=== PATIENT | female | born 1970 | race Caucasian/White ===

== ENCOUNTER 2019-03-08 17:02 | Emergency (ER) | payer OTHER, SELFPAY ==
[2019-03-08 17:03] VITALS: BP 204/107; PULSE 100; RESP 15; TEMP 36.8; O2SAT 96; BMI 24.2
--- NOTE | 2019-03-08 17:38 | ED.DCSUM_ITS ---
- ER Visit Summary Date of Service: 03/08/19 Chief Complaint: Dental pain History of Present Illness: The patient is a 48 F presenting with dental pain and facial swelling. Patient was seen by her dentist yesterday. She was started on clindamycin. She states the antibiotics are making her nauseated. She has had vomiting after taking the antibiotics today. She has had subjective fever. No difficulty breathing or swallowing. No other complaints. She has an allergy to penicillin. Physical Examination: Vitals are stable. Patient is afebrile. Alert no acute distress. HEENT exam right mandibular swelling, right lower molar tenderness, no surrounding fluctuance. No sublingual edema. Neck is supple. Lungs are clear and equal bilaterally. Heart is regular rate and rhythm. Abdomen is soft nontender nondistended. Extremities are unremarkable. Skin is warm and dry. Remainder of exam is unremarkable. Emergency Department Course and Treatment: Patient was given IV clindamycin, morphine, Zofran. On reevaluation, she is feeling improved. She is given a prescription for Zofran to take before her antibiotics. She is advised to follow-up with her dentist as scheduled. Advised to return to ED if worsening complaints. Disposition: Discharge home Impression: Odontalgia, dental infection This note was generated with [employer] dictation software. It may contain incorrect words, spelling, and punctuation that were not noted in review of the chart prior to signing ED Disposition - Plan for ED Patient: Instructions: ED Tooth Pain Prescriptions: Ondansetron [Zofran Odt] 4 mg PO Q8H PRN PRN #10 tablet PRN Reason: Nausea Referrals: Luli Eid MD [Primary Care Provider] -
[2019-03-08] MEDS: 0.9% Normal Saline 1,000 ML 999 ML IV (18:07)
[2019-03-08] MEDS: Ondansetron 4 MG/2 ML Vial IV (18:08)
[2019-03-08] MEDS: Morphine 4 MG/ML Syringe IV (18:08)
--- NOTE | 2019-03-08 18:52 | ED.DEP ---
ED Disposition - Plan for ED Patient: Instructions: ED Tooth Pain Prescriptions: Ondansetron [Zofran Odt] 4 mg PO Q8H PRN PRN #10 tablet PRN Reason: Nausea Referrals: Luli Eid MD [Primary Care Provider] -
--- NOTE | 2019-03-08 18:54 | ED.DEP ---
ED Disposition - Plan for ED Patient: Instructions: ED Tooth Pain Prescriptions: Oxycodone HCl/Acetaminophen [Percocet 5/325] 1 tablet PO Q6H PRN PRN 3 Days #12 tablet PRN Reason: Pain Ondansetron [Zofran Odt] 4 mg PO Q8H PRN PRN #10 tablet PRN Reason: Nausea Referrals: Luli Eid MD [Primary Care Provider] -
[2019-03-08 19:07] VITALS: BP 173/101; PULSE 89; RESP 16; O2SAT 97
== END 2019-03-08 19:08 | disposition home or self-care (01) ==
PROVIDERS: Emergency Provider Emergency Medicine; Family Provider Internal Medicine; PCP Internal Medicine
DX: K04.7 Periapical abscess without sinus (principal); K08.89 Other specified disorders of teeth and supporting structures; R11.2 Nausea with vomiting, unspecified
CPT/HCPCS: 96365; 96375; 99283; J7030; J2405

== ENCOUNTER → 2019-04-27 | Outpatient (CLI) | payer OTHER, SELFPAY ==
[2019-04-27 15:44] LABS: Absolute Lymphocyte Count 1.31 X10^3/uL (0.83-4.51); Absolute Neutrophil Count 3.1 X10^3/uL (2.0-7.7); Basophil# 0.04 X10^3/uL; Basophil% 0.7 % (0-1); Eosinophils% 7.4 % (0-5); Hematocrit 39.6 % (37-47); Lymphocyte # 1.31 X10^3/ul (4.0); Lymphocyte % 24.3 % (19-41); Mean Corp Hgb Conc 32.8 g/dL (32-36); Mean Corpuscular Hgb 30.4 pg (27.0-32.0); Mean Corpuscular Volume 92.5 fL (81-99); Mean Platelet Vol. 10.4 fl (6.2-12.0); Monocyte% 9.3 % (0-10); NRBC Flagged by Analyzer 0 % (0-5); Neutrophil # 3.13 X10^3/uL (2.7-7.7); Neutrophil % 58.1 % (47-70); Platelet Count 210 K/mm3 (150-450); RBC Distribution Width CV 13.4 % (11.6-14.6); RBC Distribution Width SD 45.5 fl (35.1-43.9); Red Blood Count 4.28 M/mm3 (4.2-5.4); White Blood Count 5.4 K/mm3 (4.4-11.0)
[2019-04-27 15:53] LABS: Color, Urine Yellow (Yellow); Glucose, Dipstick Normal (Normal); Ketone-Dipstick Negative (Negative); Leukocyte Esterase-Dipstick 100 /ul (Negative); Nitrite-Dipstick Positive (Negative); Occult Blood-Urine 25 /ul (Negative); Protein-Dipstick 15 mg/dl (Negative); Specific Gravity, Urine 1.025 (1.002-1.030); Urine Bilirubin Dipstick Negative (Negative); Urine Clarity Sl. Cloudy (Clear); Urine Urobilinogen Normal (Normal)
[2019-04-27 16:05] LABS: ALB/GLOB Ratio 1.1 RATIO (0.9-2.4); AST(SGOT) 18 U/L (15-37); Alanine Aminotransfer ALT/SGPT 26 U/L (13-56); Albumin, Serum 4.1 g/dL (3.2-5.0); Alkaline Phosphatase 102 U/L (45-117); Anion Gap 8 (5-15); BUN 11 mg/dL (7-18); BUN/Creat Ratio 15.6 RATIO (10-20); Chloride 107 mmol/L (98-107); EST Glomerular Filtration Rate 94 mL/min (>60); Est Glom Filt Rate - Afr Amer 113 mL/min (>60); Globulin 3.6 g/dL (2.2-4.2); Glucose 83 mg/dL (74-106); Potassium 3.5 mmol/L (3.5-5.1); Protein, Total 7.7 g/dL (6.4-8.2); Sodium Level 142 mmol/L (136-145)
[2019-04-27 16:11] LABS: Squamous Epithelial Cells - UA 10-25 SEEN /hpf (5-10); White Blood Cells 25-50 SEEN /hpf (0-5)
[2019-04-27 16:12] LABS: Bacteria 4+ /hpf (None Seen); Mucous, Urine 2+ /hpf (<or=2+); Red Blood Cells-Urine 0-5 SEEN /hpf (0-5)
== END | disposition home or self-care (01) ==
LOC: BFHLAB 14:08
PROVIDERS: Family Provider Family Medicine; PCP Family Medicine; Visit Provider Family Medicine
DX: I10 Essential (primary) hypertension (principal)
CPT/HCPCS: 36415; 80053; 81001; 84443; 85025; 87077; 87086; 87088; 87186

== ENCOUNTER → 2022-04-12 | Outpatient (CLI) | payer OTHER, SELFPAY ==
[2022-04-12 10:33] LABS: Absolute Lymphocyte Count 1.55 X10^3/uL (0.83-4.51); Absolute Neutrophil Count 4.7 X10^3/uL (2.0-7.7); Basophil# 0.03 X10^3/uL; Basophil% 0.4 % (0-1); Eosinophil# 0.61 X10^3/uL; Hematocrit 42.1 % (37-47); Hemoglobin 13.9 g/dL (12.0-15.0); Lymphocyte # 1.55 X10^3/ul (0.83-4.51); Lymphocyte % 20.3 % (19-41); Mean Corpuscular Hgb 30.6 pg (27.0-32.0); Mean Corpuscular Volume 92.7 fL (81-99); Mean Platelet Vol. 9.8 fl (6.2-12.0); Monocyte# 0.71 X10^3/uL; Monocyte% 9.3 % (0-10); NRBC Flagged by Analyzer 0 % (0-5); Neutrophil # 4.71 X10^3/uL (2.7-7.7); Neutrophil % 61.5 % (47-70); Platelet Count 238 K/mm3 (150-450); RBC Distribution Width CV 13.1 % (11.6-14.6); RBC Distribution Width SD 44.4 fl (35.1-43.9); Red Blood Count 4.54 M/mm3 (4.2-5.4); White Blood Count 7.7 K/mm3 (4.4-11.0)
[2022-04-12 11:04] LABS: AST(SGOT) 25 U/L (15-37); Alanine Aminotransfer ALT/SGPT 43 U/L (13-56); Albumin, Serum 3.8 g/dL (3.2-5.0); Alkaline Phosphatase 94 U/L (45-117); Anion Gap 7 (5-15); BUN 14 mg/dL (7-18); BUN/Creat Ratio 18.8 RATIO (10-20); Calcium,Total 9.3 mg/dL (8.5-10.1); Chloride 107 mmol/L (98-107); Cholesterol 217 mg/dL (200); Creatinine, Serum 0.74 mg/dL (0.55-1.02); EST Glomerular Filtration Rate 87 mL/min (>60); Est Glom Filt Rate - Afr Amer 105 mL/min (>60); Globulin 3.8 g/dL (2.2-4.2); Glucose 99 mg/dL (74-106); High Density Lipoprotein 60 mg/dL; Potassium 3.3 mmol/L (3.5-5.1); Protein, Total 7.6 g/dL (6.4-8.2); Sodium Level 142 mmol/L (136-145); Triglycerides 65 mg/dL; Very Low Density Lipoprotein 13 mg/dL (5-40)
== END | disposition home or self-care (01) ==
LOC: LAB 09:30
PROVIDERS: PCP Family Medicine; Visit Provider Family Medicine
DX: Z00.00 Encounter for general adult medical examination without abnormal findings (principal); I10 Essential (primary) hypertension
CPT/HCPCS: 36415; 80053; 80061; 85025

== ENCOUNTER → 2023-03-07 | Outpatient (CLI) | payer OTHER, SELFPAY ==
--- NOTE | 2023-03-07 10:15 | TISS_PTH ---
PAT[facility]: KING KHAN [id number] AGE/SX: 52/F ROOM: RE03/07/[address]: PRINCESS Salas : 1970 BED: DIS: 03/07/2023 SPEC #: [id number] RECD: 03/07/23 18:06 STATUS: ARDEN YEE #: [id number] JOHN: 03/07/23 10:[address]: Cecy Edwards DEPT: SURGICAL PATHOLOGY RECD BY: Ortiz Bustillo Tissues: Skin of leg, NOS Procedures: Special Stain Group I Surgery Specimen Level IV GMS Stain (control) HEADER OPERATION: Punch biopsy PRE-OP DIAGNOSIS: Eczema vs psoriasis TISSUE SUBMITTED: Left calf MICROSCOPIC DIAGNOSIS Left calf lesion, punch biopsy: Psoriasiform epidermal hyperplasia, hyperkeratosis and parakeratosis. Dermal, epidermal and junctional chronic inflammation. See comment. JOLENE:beti 03/09/2023 COMMENT The inflammatory cell infiltrate consists of predominantly lymphocytes and a few eosinophils. Special stain for fungi is negative for organisms; matched control is appropriate. Correlation with clinical findings and appropriate follow up are necessary. This case was discussed with Ms. Cecy Edwards on 03/09/2023. MICROSCOPIC DESCRIPTION Slides are reviewed. GROSS DESCRIPTION Received in fixative is one container labeled with the patient's name and designated left calf. The specimen consists of a punch biopsy of argueta-white skin measuring 0.4 cm in diameter and 0.4 cm in length. The specimen is totally submitted in one cassette. / SJ:beti 03/08/2023 TC:3 CPT: 34452, 02157
== END | disposition home or self-care (01) ==
LOC: LAB.FUTURE 13:58
PROVIDERS: PCP Nurse Practitioner Family; Referring Provider Nurse Practitioner Family; Visit Provider Nurse Practitioner Family
DX: R22.42 Localized swelling, mass and lump, left lower limb (principal)
CPT/HCPCS: 88305; 88312

== ENCOUNTER → 2023-03-07 | Outpatient (CLI) | payer OTHER, SELFPAY ==
--- NOTE | 2023-03-07 13:44 | VDLE_ITS ---
Reason For Study: RLE pain & swelling RIGHT LEFT GSV is normal. CFV is compressible, spontaneous, phasic, CFV is compressible, spontaneous, phasic, competent, and demonstrates normal competent and demonstrates normal augmentation. augmentation. FV is compressible, spontaneous, phasic, competent and demonstrates normal augmentation. POP V is compressible, spontaneous, phasic, competent and demonstrates normal augmentation. T/P Trunk is compressible. PTV is compressible. RT PerV is compressible. Procedure This is a venous duplex using B-mode, color flow and spectral Doppler. Exam performed in department. The exam was diagnostic. A preliminary report was called and/or faxed to Cecy Edwards @ [phone] @ 2 pm. VL/Venous Duplex US, Unilateral Interpretation Summary Deep veins of the right lower extremity are patent and compressible segmentally . There is no evidence of right lower extremity deep vein thrombosis. The right great sapheno us vein appears patent and compressible segmentally. Ordering Physician: Cecy Edwards Referring Physician: Gloria Mackenzie Performed By: Shakira Sawyer, NELLIE, RVT
== END | disposition home or self-care (01) ==
LOC: CVS 13:39
PROVIDERS: PCP Family Medicine; Referring Provider Nurse Practitioner Family; Visit Provider Nurse Practitioner Family
DX: M79.604 Pain in right leg (principal)
CPT/HCPCS: 93971

== ENCOUNTER → 2023-04-21 | Outpatient (CLI) | payer OTHER, SELFPAY ==
[2023-04-21 10:49] LABS: Hepatitis B Surface Antibody Non-Reactive
[2023-04-22 05:07] LABS: HEPATITIS B SURFACE AG Negative (Negative); Hep C Antibodies Non Reactive (Non Reactive); Hepatitis A AB, Total Negative (Negative); Hepatitis A IgM Antibody Negative (Negative); Hepatitis B Core AB IgM Negative (Negative)
== END | disposition home or self-care (01) ==
LOC: MTLAB 08:17
PROVIDERS: PCP Family Medicine; Visit Provider Physician Assistant
DX: L43.8 Other lichen planus (principal); S40.261A Insect bite (nonvenomous) of right shoulder, initial encounter; S30.860A Insect bite (nonvenomous) of lower back and pelvis, initial encounter
CPT/HCPCS: 36415; 80074; 86706; 86708

== ENCOUNTER 2025-09-01 08:30 | Emergency (ER) | payer OTHER, SELFPAY ==
[2025-09-01 08:31] VITALS: BP 172/102; PULSE 75; RESP 16; TEMP 36.7; O2SAT 98; BMI 24.3
--- NOTE | 2025-09-01 08:38 | ED.VIS.BACK ---
HPI History of Present Illness Chief Complaint: Back Informant: patient Onset/Context/Timing Onset: Days (4) Context: Gradual Onset Timing: Continuous Quality: Dull Location: Lumbar, Buttock and Right Leg Worsened by: improves with Nothing Relieved by: Nothing Associated Symptoms Associated Symptoms: Radiation to Right Leg; Negative for Numbness, Tingling, Radiation to Left Leg, Fever, Abdominal Pain, Dysuria, Unable to Ambulate, Unable to Transfer, Urinary Retention, Urinary Incontinence, Constipation or Fecal Incontinence Narrative Narrative: Patient presents with back pain that has been getting worse over the past 4 days. Patient states it came on gradually. Patient states it is constant. Patient describes it as dull. Patient states it is over the right lumbar paraspinal muscles and radiates into the right buttock and down the right leg to her calf. Patient states nothing makes it better and nothing makes it worse. Patient denies any radiation into her abdomen. Patient denies any bowel or bladder changes. Patient denies any saddle anesthesia. Patient states she noticed the rash a couple days ago over her right buttock. PFSH [facility] Medical History (Updated 09/01/25 @ 08:[address] Foster Garcia DO) Tick bite Hypertension Medical History unable to obtain Home Medications ?Medication ?Instructions ?Recorded ?Last Taken ?Type amlodipine 5 mg tablet 5 mg PO DAILY 11/07/22 Unknown History doxycycline monohydrate 100 mg 100 mg PO BID #28 caps 12/24/24 Unknown Rx capsule cyclobenzaprine 10 mg tablet 10 mg PO QHS PRN PRN Muscle Spasm 09/01/25 Unknown Rx #10 TABLETS hydrocodone-acetaminophen 5-325mg 1 tab PO Q6H PRN PRN Pain 3 days 09/01/25 Unknown Rx 5mg-325mg #10 TABLETS Allergy/AdvReac Type Severity Reaction Status Date / Time Penicillins Allergy Unknown Verified 09/01/25 08:32 Family History unable to obtain Surgical History (Updated 09/01/25 @ 08:[address] Foster Garcia DO) Hx of lumbar discectomy Surgical History unable to obtain Social History Smoking Status: Never smoker ROS ROS ED Constitutional Constitutional ED: Denies chills or fever(s) Eyes Eyes: Denies blurry vision or change in vision ENT ENT ED: Denies rhinorrhea or sore throat Cardiovascular Cardiovascular: Denies chest pain or palpitations Respiratory/Chest Respiratory/Chest: Denies cough or dyspnea Gastrointestinal Gastrointestinal: Denies nausea or vomiting Genitourinary Genitourinary ED: Denies dysuria or hematuria Musculoskeletal Musculoskeletal: Reports back pain; Denies neck pain Integumentary Reports rash; Denies abscess Neurologic Neurologic: Denies headache(s) or weakness Allergic/Immunologic Allergic/Immunologic ED: Denies mouth swelling or urticaria EXAM Physical Exam Const Vital Signs: 09/01/25 08:31 Temperature 98.1 F Temperature Source Oral Pulse Rate 75 Respiratory Rate 16 Blood Pressure 172/102 H Blood Pressure Mean 125 Pulse Ox 98 Oxygen Delivery Method Room Air Positive well nourished and well developed General Appearance ED: well developed and NAD HEENT Reports moist mucous membranes Neck supple and no JVD Back/Spine Back/Spine Narrative: There is mild tenderness over the right lumbar paraspinal muscles and right gluteal area. There is no bony crepitance or step-off. There is no midline tenderness. There is somewhat limited range of motion of the lumbar spine. Strength is 5/5 bilaterally in the lower extremities. There are no sensory deficits noted. Straight leg raises were negative. Lumbar Spine / Lower Back: ROM limited and straight leg raise negative bilaterally Neuro oriented x3 and no sensory deficits noted Sensorium / Orientation: alert Motor Exam: strength 5/5 throughout Deep Tendon Reflexes: Rt Patellar (L4): 2+, Lt Patellar (L4): 2+, Rt Ankle (S1): 2+ and Lt Ankle (S1): 2+ Deep Tendon Reflexes Back: Rt Patellar (L4): 2+, Lt Patellar (L4): 2+, Rt Ankle (S1): 2+ and Lt Ankle (S1): 2+ Skin Skin Narrative: There is mild erythematous rash over the right gluteal area. There are no vesicles or pustules. There are no petechia noted. There is no involvement of the palms soles. There is no involvement of mucous membranes. MDM MDM MDM Narrative Medical decision making narrative: Differential diagnosis includes lumbosacral strain, sciatica, and varicella-zoster. Since the rash is localized to the gluteal area and there is no dermatomal distribution and no vesicles, I do not feel this is from varicella zoster. It is likely that the rash is from the analgesic cream that she applied to the area. Patient was given a prescription for a short course of [place] and a short course of Flexeril to take at bedtime. Patient was advised that this is most likely sciatica. I do not feel x-rays are necessary at this time. Patient is agreeable with this. Patient was instructed to follow-up with her primary care physician in 5 to 7 days. Patient was instructed to return if worse in any way. Patient understood and was agreeable with the plan. All questions were answered. History & Record Review Additional record(s) reviewed:: Prior outpatient record Discharge Plan Triage Chief Complaint: Back Other Complaint: Lower Extremity Injury ED Provider: Foster Garcia Dx/Rx/DC Orders Clinical Impression: Sciatica of right side, Elevated blood pressure reading Instructions: ED Sciatica Prescriptions: New cyclobenzaprine 10 mg tablet 10 mg PO QHS PRN PRN (Reason: Muscle Spasm) Qty: 10 0RF hydrocodone-acetaminophen 5-325 mg tablet 1 tab PO Q6H PRN PRN (Reason: Pain) 3 Days Qty: 10 0RF No Action amlodipine 5 mg tablet 5 mg PO DAILY Patient Comments: TAKE 1 TABLET BY MOUTH EVERY DAY doxycycline monohydrate 100 mg capsule 100 mg PO BID Qty: 28 0RF Primary Care Provider: Gloria Mackenzie Referrals: Gloria Mackenzie MD [Primary Care Provider, Family Practice] - 5-7 Days Print Language: Yoruba Disposition Disposition: Home, Self Care
--- OUTSIDE RECORDS SUMMARY | 2025-09-01 09:04 | XMS RPT_ITS | CCD ---
Author Organization [facility] Inform ion Partnership [facility] Care Team Providers Care Weir Fisher Name Role Phone JOMAR CHAVEZ Unavailable Unavailable NITISH CHAMORRO (KUN) Unavailable Unavailable Craig Packer Attending Unavailable Gloria Mackenzie Referring Unavailable Gloria Mackenzie Primary Care Unavailable Allergies Allergy Classification Reported Allergen(s) Allergy Type Date of Onset Reaction(s) Facility (5 sources) Penicillins; Translations: [PENICILLINS] Propensity to adverse reactions to drug (disorder) 4 AOF, Unknown [facility] Repository Medications Current Medications Medication Drug Class(es) Dates Sig (Normalized) Sig (Original) amLODIPine 5 mg oral tablet (3 sources) Dihydropyridine Calcium Channel Gabriel Start: 11-07-2022 take 5 mg by mouth once daily Amlodipine Active 5 MG PO DAILY November 07, 2022 1:00am azithromycin 250 mg oral tablet (3 sources) Macrolide Antimicrobial Start: 11-07-2022 Azithromycin (Zithromax Z-Herson) 250 mg tablet Active 0 PO .COMPLEX 6 November 07, 2022 1:00am For 250 mg dose pack: take 500 mg today (day 1), then 250 mg for 4 days (days 2-5) PO Completed/Discontinued Medications Medication Drug Class(es) Dates Sig (Normalized) Sig (Original) acetaminophen 325 mg / oxyCODONE hydrochloride 5 mg oral tablet (4 sources) Opioid Agonist Start: 03-08-2019 End: 03-11-2019 take 1 tablet by mouth every six hours as needed Oxycodone-Acetami nophen Discontinued 1 TABLET PO EVERY 6 HOURS NEEDED 08 28March 08, 2019 12:00am March 11, 2019 12:08am clindamycin 150 mg oral capsule (4 sources) Lincosamide Antibacterial Start: 03-08-2019 End: 11-07-2022 take 150 mg by mouth every six hours Clindamycin Hcl Discontinued 150 MG PO EVERY 6 HOURS FOR 7 DAYS March 08, 2019 12:00am November 07, 2022 10:53am ondansetron 4 mg disintegrating oral tablet (4 sources) Serotonin-3 Receptor Antagonist Start: 03-08-2019 End: 11-07-2022 take 4 mg by mouth every eight hours as needed Ondansetron Discontinued 4 MG PO EVERY 8 HOURS NEEDED March 08, 2019 12:00am November 07, 2022 10:53am Problems Problem Classification Problem Date Documented Da te Episodic/Chronic Other upper respiratory infections (6 sources) Streptococcal sore throat; Translations: [Streptococcal pharyngitis] 11-07-2022 Episodic Results Test Name Value Interpretation Reference Range Facility Urgent Care Visit Reporton 0 12-24-2024 Urgent Care Visit Report [facility] [address], [address] [place] [address] OFFICE VISIT Date of Service: 12/24/24 MR#: [id number] Acct: [id number] Name: MAGGIE SALAZAR Rep #: [id number] : 1970 Provider: KUN Altamirano Age/Sex: 54/F Location: [facility] Status: Signed Intake Vital Signs 11/07/22 09:52 12/24/24 10:51 Height 5 ft 6 in 5 ft 6 in Weight: 153 lb 4 oz BMI 24.7 BP 124/86 H Position Sitting Pulse 78 Temp 98.6 F Pulse Oximetry (%) 97 Oxygen Delivery Method room air Intake Visit Reasons: L UPPER ARM TICK BITE Accompanied by: Self Allergies Penicillins Allergy (Verified 12/24/24 10:57) Unknown Medications ???Medication ???Instructions ???Recorded ???Confirmed ???Type amlodipine 5 mg tablet 5 mg PO DAILY 11/07/22 12/24/24 Hi story doxycycline monohydrate 100 mg 100 mg PO BID #28 caps 12/24/24 Rx capsule Nurse's Note: Patient has a tick bit on her left upper arm. Patient noticed the tick yesterday. Patient think it got on her either Tuesday or Sat. Patient did get the tick of in pieces so she isn't sure if the head is out. Patient does have a red ring around the bite. [facility] Medical History (Updated 12/24/24 @ 11:52 by Craig TRISTAN, PA) Tick bite Hypertension Social History Smoking Status: Never smoker HPI HPI Details: MAGGIE SALAZAR, is a 54 F who presents to the office today for tick bite to the left upper arm most likely 2 to 3 days ago as stated in nursing history above. She notes her was able to move the tick with tweezers yesterday at home that was unsure if any foreign body retention (head) is still retained within the wound. No complaints of fever, chills, headache, muscle aches, joint pain, neck pain, skin rash, Carlos's palsy, heart rhythm disturbances appreciated upon questioning. No [id number] products taken to assist. No other associated symptoms and no other alleviating/aggravating factors. ROS Const Constitutional: No other (As above) Exam Const General: cooperative, healthy appearing and no acute distress Orientation: alert and awake Chest Chest palpation inspection: normal inspection of the chest Resp Effort Inspection: normal respiratory effort and able to speak in complete sentences Cardio Rate: regular rate Pulses: radial pulses present Skin General: no rashes or lesions noted Other: Left upper posterior arm pinpoint eschar (though no foreign body retention appreciated upon inspection) with approximately 1 cm diameter erythema (not a classic erythema migrans appearance) with a mechanical integrity specialist erythematous circumferential of approximately 5 cm as well. Neuro General: patient alert and patient awake Cognition: normal cognition Speech: speech normal Extrem General: normal to inspection Psych Appearance: grossly normal Mental Status: mental status grossly normal Mood: congruent mood Affect: normal affect Speech and Movement: speech and movement normal Attitude: cooperative Coding Level of Care Code Off vis,est,level 3 Diagnoses Tick bite W57.XXXA Assessment and Plan Assessment and Plan (1) Tick bite: Status: Acute Plan: - by history Doxycycline 100 mg twice daily x 14 days as prescribed today. Supportive measures as instructed. A picture of the wound site as appears today was taken with patient's personal cell phone which she is to sure PCP and follow-up in 5 to 7 days or report to ED sooner should symptoms only worsen or any other concerns develop. Patient states acknowledging understanding all the above. This note was generated with Almondyation software. It may contain incorrect words, spelling, and punctuation that were not noted in checking the note before signing. Medications: New doxycycline monohydrate 100 mg PO BID 28 caps 0RF 12/24/24 1154 Date ____ Craig Tapia Signature: Date ____ (if applicable) CC: Normal [facility] No Panel InformationOrdered By: Alanis Bynum on 04-21-2023 Hepatitis A Antibody Total Negative Negative [facility] Comment on above: Performed at: [address] Director: Bobby Knott PhD, Phone: [phone] Hepatitis A IgM Antibody Negative Negative [facility] Hepatitis B Core IgM Antibody Negative Negative [facility] Hepatitis C Antibody (EIA) Non-Reactive Non Reactive [facility] Hepatitis C Antibody Comment Comment . [facility] Comment on above: Not infected with HC V unless early or acute infection issuspected (which may be delayed in an immunocompromisedindividual), or other evidence exists to indicate HCVinfection. Serum hepatitis B virus surf delaney antibody IgG detectionOrdered By: Alanis Bynum on 04-21-2023 HBV surface IgG Ql (S) Non-Reactive [facility] Comment on above: Non Reactive: Incons istent with immunity less than <10 mIU/mL Reactive: Consistent with immunity greater than or equal to 10 mIU/mL Serum or plasma hepatitis B virus surface antigen detection by immunoassayOrdered By: Alanis Bynum on 04-21-2023 HBV surface Ag IA Ql Negative Negative [facility] Absolute lymphocyte counton 04-12-2022 Lymphocytes Auto (Unsp spec) [#/Vol] 1.55 10*3/uL 0.83-4.[address] [facility] Work Phone: Basophil percentageon 2021 Basophils/100 WBC (Bld) 0.4 % 0-[address] [facility] Work Phone: [phone] Bilirubin [Mass/Vol] 0.70 mg/dL 0.20-1.[address] [facility] Work Phone: [phone] Comment on above: For patients on eltr ombopag therapy, use of Dimension [place] TBIL is not recommended. Chloride [Moles/Vol] 107 mmol/L 98-[address] [facility] Work Phone: Cholesterol [Mass/Vol] 217 mg/dL <[address] [facility] Work Phone: [phone] Comment on above: <200 mg/dL Desirable 200-240 mg/dL Borderline >240 mg/dL High Risk Eosinophils/100 WBC (Bld) 8.0 % 0-[address] [facility] Work Phone: Glucose [Mass/Vol] 99 mg/dL 74-106 [facility] Work Phone: [phone] Neutrophils (Bld) [#/Vol] 4.7 10*3/uL 2.0-7.[address] [facility] Work Phone: Neutrophils/100 WBC (Bld) 61.5 % 47-[address] [facility] Work Phone: [phone] Potassium [Moles/Vol] 3.3 mmol/L 3.5-5.[address] [facility] Work Phone: [phone] Protein [Mass/Vol] 7.6 g/dL 6.4-8.2 [facility] Work Phone: Sodium [Moles/Vol] 142 mmol/L 136-145 [facility] Work Phone: [phone] Triglyceride [Mass/Vol] 65 mg/dL <[address] [facility] Work Phone: [phone] Comment on above: The drugs N-Acetylcy steine and Metamizole may falsely depress this assay.Serum Triglycerides Reference Interval Normal <150 mg/dL Borderline high 150 - 199 mg/dL High 200 - 499 mg/dL Very High > or = 500 mg/dL WBC (Bld) [#/Vol] 7.7 10*3/uL 4.4-11.0 [facility] Work Phone: [phone] Blood erythrocytes count (nu mber/volume)on 04-12-2022 RBC (Bld) [#/Vol] 4.54 10*6/uL 4.2-5.4 [facility] Work Phone: [phone] Blood hemoglobin measurement (mass/volume)on 04-12-2022 Hemoglobin (Bld) [Mass/Vol] 13.9 g/dL 12.0-15.[address] [facility] Work Phone: Blood lymphocytes/100 leukoc yteson 04-12-2022 Lymphocytes/100 WBC (Bld) 20.3 % 19-[address] [facility] Work Phone: Blood monocytes/100 leukocyt eson 04-12-2022 Monocytes/100 WBC (Bld) 9.3 % 0-[address] [facility] Work Phone: Blood platelet mean volumeon 04-12-2022 Platelet mean volume (Bld) [Entitic vol] 9.8 fL 6.2-12.[address] [facility] Work Phone: [phone] Determination of erythrocyte mean corpuscular volume (MCV)on 04-12-2022 MCV (RBC) [Entitic vol] 92.7 fL 81-[address] [facility] Work Phone: Hematocrit Auto (Bld) [Volum e fraction]on 04-12-2022 Hematocrit (Bld) [Volume fraction] 42.1 % 37-[address] [facility] Work Phone: [phone] Laboratory - Chemistry and C hemistry - challengeon 04-12-2022 ALP [Catalytic activity/Vol] 94 U/L 45-[address] [facility] Work Phone: ALT [Catalytic activity/Vol] 43 U/L 13-[address] [facility] Work Phone: CO2 [Moles/Vol] 28.0 mmol/L 21.0-32.[address] [facility] Work Phone: [phone] Globulin (S) [Mass/Vol] 3.8 g/dL 2.2-4.[address] [facility] Work Phone: Urea nitrogen/Creatinine [Mass ratio] 18.8 mg/mg 10-[address] [facility] Work Phone: Laboratory - Hematology and Cell countson 04-12-2022 Erythrocyte distribution width (RBC) [Entitic vol] 44.4 fL 35.1-43.[address] [facility] Work Phone: Erythrocyte distribution width (RBC) [Ratio] 13.1 % 11.6-14.[address] [facility] Work Phone: Immature granulocytes/100 WBC (Bld) 0.500 % 0.0-0.[address] [facility] Work Phone: Comment on above: IG% - Immature Granu locytes (promyelocytes, myelocytes and metamyelocytes) > 1% indicates that a LEFT SHIFT is Present. MCH (RBC) [Entitic mass] 30.6 pg 27.0-32.[address] [facility] Work Phone: Nucleated RBC/100 WBC (Bld) [Ratio] 0 % 0-[address] [facility] Work Phone: MCHC Auto (RBC) [Mass/Vol]on 04-12-2022 MCHC (RBC) [Mass/Vol] 33.0 g/dL 32-[address] [facility] Work Phone: No Panel Informationon 04-12 Estimated GFR (MDRD) Amer 105 mL/min >[address] [facility] Work Phone: Comment on above: GFR Calc Estimated GFR (MDRD) Non-Af Amer 87 mL/min >[address] [facility] Work Phone: Comment on above: Non- GFR Calc Platelets bldon 04-12-2022 Platelets (Bld) [#/Vol] 238 10*3/uL 150-[address] [facility] Work Phone: Serum or plasma albumin juan urement (mass/volume)on 04-12-2022 Albumin [Mass/Vol] 3.8 g/dL 3.2-5.0 [facility] Work Phone: Serum or plasma albumin/glob ulin mass ratioon 04-12-2022 Albumin/Globulin [Mass ratio] 1.0 {ratio} 0.9-2.[address] [facility] Work Phone: Serum or plasma calcium juan urement (mass/volume)on 04-12-2022 Calcium [Mass/Vol] 9.3 mg/dL 8.5-10.1 [facility] Work Phone: Serum or plasma cholesterol in HDL measurement (mass/volume)on 04-12-2022 Cholesterol in HDL [Mass/Vol] 60 mg/dL >[address] [facility] Work Phone: Comment on above: The drugs N-Acetylcy steine and Metamizole may falsely depress this assay. Reference Range HDL <40 mg/dL Low HDL Cholesterol HDL >or= 60 mg/dL High HDL Cholesterol Serum or plasma cholesterol in VLDL measurement (mass/volume)on 04-12-2022 Cholesterol in VLDL [Mass/Vol] 13 mg/dL 5-[address] [facility] Work Phone: Serum or plasma creatinine m easurement (mass/volume)on 04-12-2022 Creatinine [Mass/Vol] 0.74 mg/dL 0.55-1.[address] [facility] Work Phone: Comment on above: The validity of the calculated GFR & GFRAA in patients over 70 years has not been determined. Clinical correlation is essential. Serum or plasma low density lipoprotein (LDL) cholesterol measurement (mass/volume)on 04-12-2022 Cholesterol in LDL [Mass/Vol] 144 mg/dL 0-[address] [facility] Work Phone: Serum or plasma urea nitroge n measurement (mass/volume)on 04-12-2022 Urea nitrogen [Mass/Vol] 14 mg/dL [address] [facility] Work Phone: Thin prep Papanicolaou smear with manual screeningon 04-12-2022 Thin prep Papanicolaou smear with manual screening 25 U/L 15-[address] [facility] Work Phone: Thin prep Papanicolaou smear with manual screening 7 02-[address] [facility] Work Phone: CNOVon 03-14-2018 CNOV Office Visit (ALLMED) MAGGIE RAM ([id number]) 1970 FDate Time Provider Department03/14/18 9:30 AM JOMAR CHAVEZ ALLBERTO During your visit today, we recorded the following information about you: Pulse Respiration Blood pressure Weight 64/minute 12/minute 170/88 67.6 kg Height 1.689 Alycia Parisi RN 03/14/2018 9:36 AM SignedPatient c/o itchy/watery eyes, runny nose, sneezing 2 weeks prior and 2 weeksafter every year. Sometimes has scratchy throat. Levocetirizine,zyrtec-makes her tired, cinda, claritin, flonase- did not seem to help. Hasused otc eye drops for allergies that helped.Louisa Newman RN 03/14/2018 10:59 AM SignedThis is a consultation requested by Edwin Chamorro CNP for an allergy andimmunology evaluation. My final recommendations will be communicated back tothe requesting physician by way of shared medical record or letter torequesting physician via US mail.Maggie Salazar is a 47 year old female who has symptoms of itchy eyes, wateryeyes, nasal congestion, sneezing, postnasal drip. Associated symptoms includecough . These symptoms are seasonal with symptoms occuring in January and Februaryonly. Symptoms are worse when outdoors. No other identified triggers for hersymptoms. The patient has been suffering from these symptoms 4 year(s). Thepatient has tried Loratadine, Fexofenadine, Zyrtec, Flonase, Xyzal With fairrelief of symptoms. She has been treated with Kenalog injections previouslywith relief.. Immunotherapy has never been tried.Patient has a history of penicillin allergy. She had a reaction to penicillinin childhood. She does not know details about the reaction. Denies subsequentuse of penicillin antibiotics.REVIEW OF SYSTEMS:SINUSITIS: The patient does not suffer from frequent sinopulmonary infections.ASTHMA: The patient has no history of asthma.ECZEMA: The patient has no history of eczema.URTICARIA:The patient does not have a history of urticaria and/or angioedema.GERD: The patient does not have a history of GERD.INSECT STING: The patient does not have a history of systemic reaction toinsect sting.FOOD ALLERGY:The patient denies history of food allergy.LATEX: The patient does not have a history of adverse reaction to latex.All other review of systems negative except for those listed above.PAST MEDICAL HISTORYDiagnosis Date- HypertensionMEDICATIONS:IBUPROF EN (ADVIL ORAL) Take by mouth.Levocetirizine 5 mg tablet Take 1 tablet by mouth daily at bedtime.fluticasone (FLONASE) 50 mcg/actuation nasal spray Use 2 Sprays in each nostrilonce daily. Rinse mouth after use.Olopatadine (PATADAY) 0.2 % drop Use 1 Drop in both eyes once daily.ALLERGIES: Allergies As of Date: 03/14/2018Allergen Noted ReactionPENICILLINS 12/08/2013 UnknownFully Assessed 03/14/2018Past surgical history:Back surgery for bulging disk approx 2016FAMILY HISTORY:Allergic rhinitis:no.Asthma: no.Eczema: no.Cystic fibrosis: no.Immunodeficiency: no.SOCIAL HISTORY:Marital status: MarriedChildren: 2Occupation: Teacher- special ed preschoolSmoking: life-long non-smokerENVIRONMENTAL HISTORY: Lives in a houseAge of home: over 100 yearsHeating: gasWoodburning fireplace in the home: noAir conditioning: Window air conditioningBasement: Dry basement-runs dehumidifierFlooring: [id number]-ee-efdf carpetingDust mite controls: Dust mite controls are already in place on mattress.Pets in the home: There are no pets in the homeOutdoor animals: There are no outdoor animalsTobacco smoke: No exposure in the home.Physical Exam:GENERAL APPEARANCE:Well appearing, alert, in no acute distress, well-hydrated,well nourished.HEENT: NCAT.EYES: conjunctiva and sclera normal.EARS: External ears normal. Canals clear. TM's normal.NOSE/SINUS:pallor and mild edema of the nasal mucosa with scant clearsecretions bilaterallyTHROAT: no erythemaNECK:neck supple, no adenopathyHEART:RRR with normal S1 and S2 ,no murmurs, no gallops, no rubsLUNGS: clear to auscultation bilaterally, no wheezes, rales or rhonchiABDOMEN:soft, nontender, nondistended, without organomegaly or palpable massesEXTREMITIES:Extremities normal, No deformities, No skin discoloration and NoedemaSKIN: Skin color, texture, turgor normal. No rashes or lesions.ALLERGY SKIN TESTS:Positive to cats, dust mites, trees, grasses, weeds, ragweedon prick testing. Negative to penicillin and Pre-Pen on both prick andintradermal tests.ASSESSMENT/PLAN:1.) Allergic RhinoconjunctivitisAggressive environmental controlsExposure to cats should be minimized. There are no cats in the home.Allergen proof encasings should be placed on her pillows.Environmental controls for the pollens were also discussed.The following medication regimen was recommended for the patient:From the beginning of January through the end of February,Use otc fluticasone nasal spray 2 sprays to each nostril once a day in themorning (generic flonase)Take otc fexofenadine (cinda) 180 mg in the morningTake montelukast (singulair) one tablet at bedtimeUse pataday 1-2 drops to each eye once a dayUse cromolyn 1-2 drops to each eye 4 to 6 times a day as needed.(Patient instructed to call the office in early 2019 so that prescriptions forSingulair, Pataday and cromolyn may be forwarded to her preferred pharmacy.)Subcutaneous allergy immunotherapy and sublingual immunotherapy (Grastek orOralair) are treatment options that may be considered. These options werediscussed briefly with the patient at today's visit.2.) History of penicillin allergy: Penicillin skin tests were negative.Patient is at low risk for a severe, immediate, IgE?mediated reaction topenicillin and other penicillin-type antibiotics. Penicillin skin tests areunreliable for predicting delayed reactions.3.) Hypertension: Patient instructed to follow-up with PCP4.)Discussed medication dosage, usage, side effects, and goals of treatment indetail.5.) Follow-up in Jan, 2019 - patient will return sooner should new symptoms orproblems arise.Jomar Chavez MDINHALANT 40 PERCUTANEOUS AND INTRADERMAL TESTING/Mean Wheal AND Flare Diameter (mm)Patient has been identified by name and date of : Yes . Skin test appliedby : Louisa Newman RNInterpreted By: Jomar Chavez M.D.* Clinical significant reactions are regarded as a wheal diameter greater thanor equal to 3 mm with a flare diameter greater or equal to 6mm.ALLERGENSTime applied:Time read:1. Negative Control: 50%Glycerin/50%Cocas P: W = 0 mm F = 0 mm2. Cat Hair 10,000 BAU/ml P: W = 6 mm F = 25 mm3. Dog Epithelial 1:20 P: W = 0 mm F = 0 mm4. Cockroach Mix 1:20 P: W = 0 mm F = 0 mm5. Mite Df 10,000 AU/ml P: W = 4 mm F = 20 mm6. Mite Dp 10,000AU/ml P: W = 0 mm F = 0 mm7. Alternaria Alternata 1:10 P: W = 0 mm F = 0 mm8. Aspergillus Fumigatus 1:20 P: W = 0 mm F = 0 mm9. Cladosporium sphearospermum 1:20 P: W = 0 mm F = 0 mm10. Epicoccum Nigrum 1:10 P: W = 0 mm F = 0 mm11. Fusarium Solani 1:40 P: W = 0 mm F = 0 mm12. Bipolaris Sorokiniana 1:20 P: W = 0 mm F = 0 mm13. Penicillium Mix 1:20 P: W = 0 mm F = 0 mm14. Jim, White 1:20 P: W = 0 mm F = 0 mm15. Beech, Austrian 1:20 P: W = 0 mm F = 0 mm16. Birch Mix 1:20 P: W = 0 mm F = 0 mm17. Maple Mix 1:20 P: W = 2 mm F = 4 mm18. Dixie ,Eastern 1:20 P: W = 0 mm F = 0 mm19. Elm, Austrian 1:20 P: W = 0 mm F = 0 mm20. [place], Shagbark 1:20 P: W = 0 mm F = 5 mm21. [place] Tree, Red 1:20 P: W = 0 mm F = 0 mm22. [place], Black 1:20 P: W = 0 mm F = 0 mm23. [place], Austrian/Eastern 1:20 P: W = 0 mm F = 0 mm24. [place] Pollen, Black 1:20 P: W = 4 mm F = 25 mm25. [place], Black 1:20 P: W = 0 mm F = 6 mm26. [place] Grass 10,000 BAU/ml P : W = 6 mm F = 34 mm27. [place], /February 100,000 BAU/ml P: W = 5 mm F = 15 mm28. Fescue, [place] 100,000 BAU/ml P: W = 6 mm F = 25 mm29. [place] Grass 1:20 P: W = 12 mm F = 30 mm30. Orchard Grass 100,000 BAU/ml P: W = 6 mm F = 30 mm31. Perennial [place], 100,000 BAU/ml P: W = 9 mm F = 30 mm32. Marc 100,000 BAU/ml P: W = 9 mm F = 32 mm33. Cocklebur 1:20 P: W = 0 mm F = 0 mm34. [employer], sheep 1:20 P: W = 0 mm F = 4 mm35. Plantain, Albanian 1:20 P: W = 2 mm F = 10 mm36. Lambs Quarters 1:20 P: W = 0 mm F = 0 mm37. [place] Elder, Burweed 1:20 P: W = 6 mm F = 20 mm38. Pigweed, Rough 1:20 P: W = 0 mm F = 0 mm39. Ragweed, Mix 1:20 P: W = 2 mm F = 18 mm40. HISTAMINE, positive control(Histamine base 6mg/ml) P: W = 8 mm F = 25 mmANTIBIOTIC PERCUTANEOUS AND INTRADERMAL SKIN TESTING/Mean Wheal AND Flare Diameter (mm)Patient has been identified by name and date of : Yes . Skin test appliedby : Louisa Newman RNInterpreted By: Jomar Chavez M.D.* Clinical significant reactions are regarded as a wheal diameter greater thanor equal to 3 mm with a flare diameter greater or equal to 6mm.Time Prick test applied: Time Intradermal test applied:Time Prick test read: Time Intradermal test read:ALLERGENS1. CONTROL Normal Saline P: W = 0 mm F = 0 mmID:W = 0 mm F = 0 mm2. PENICILLIN GK 10,000 UNITS/ML P: W = 0 mm F = 0 mmID: W = 0 mm F = 0 mm3. PREPEN -(benzylpenicilloyl polylysine) full strength P: W = 0 mm F = 0mmID: W = 0 mm F = 0 mm4. HISTAMINE- positive control (Histamine base 6mg/ml)for Prick and 0.1 mg/mlfor intradermal P: W = 8 mm F = 25 mmID:W = 8 mm F = 35 mmPatient was instructed on allergy (prick and intradermal) testing. TopicalPramasone cream applied to testing site per Dr. Chavez's instruction.Jomar Chavez MD 03/14/2018 10:41 AM AddendumYou are allergic toCatsDust mitestrees (November, December and January)grasses (January and February)weeds (April, May and June)ragweed (April, May and June)From the beginning of January through the end of February,Use otc fluticasone nasal spray 2 sprays to each nostril once a day in themorning (generic flonase)Take otc fexofenadine (cinda) 180 mg in the morningTake montelukast (singulair) one tablet at bedtimeUse pataday 1-2 drops to each eye once a dayUse cromolyn 1-2 drops to each eye 4 to 6 times a day as needed.Referring Provider: NITISH CHAMORRO ([facility]) [[id number]]Allergies As of Date: 03/14/2018 Noted Allergy ReactionCATS 03/14/2018 16 - Unknown Comments: VERIFIED BY SKIN TESTINGSEASONAL ALLERGIES 03/14/2018 16 - Unknown Comments: DUST MITES, TREES, GRASSES, WEEDS AND RAGWEED VERIFIED BY SKIN TESTINGDate Reviewed: 03/14/2018Reviewed by: Jomar Chavez - Fully AssessedReason for Visit: New Patient [172] Cmt: allergiesPrimary Visit Diagnosis:Seasonal allergic rhinitis due to pollen [J30.1] Other Visit Diagnoses:History of penicillin allergy [Z88.0] Allergic rhinitis due to cats [J30.81] Allergic rhinitis due to dust mite [J30.89]Order(s):ALLERGEN SKIN TEST-INHALENT 40 [[id number]] Order #: [id number] ALLERGEN SKIN TEST-PENICILLIN [[id number]] Order #: [id number] ALLERGEN SKIN TEST-PENICILLIN [[id number]] Order #: [id number] Olopatadine (PATADAY) 0.2 % dropUse 1-2 Drops in both eyes once daily as needed.Disp: 1 BottleRfl: 11 Cromolyn Sodium (CROLOM) 4 % ophthalmic solution1-2 drops to each eye 4 to 6 times a day as needed.Disp: 1 BottleRfl: 11 montelukast (SINGULAIR) 10 mg tabletTake 1 tablet by mouth daily at bedtime.Disp: 30 tabletRfl: 11Prescriptions as of 03/14/2018 Sig: ADVIL ORAL Take by mouth. OLOPATADINE 0.2 % EYE DROPS Use 1-2 Drops in both eyes on* CROMOLYN 4 % EYE DROPS 1-2 drops to each eye 4 to 6 * MONTELUKAST 10 MG TABLET Take 1 tablet by mouth daily * LEVOCETIRIZINE 5 MG TABLET Take 1 tablet by mouth daily * Patient not taking: Reported on 03/14/2018 FLUTICASONE 50 MCG/ACTUATION * Use 2 Sprays in each nostril * Patient not taking: Reported on 03/14/2018 OLOPATADINE 0.2 % EYE DROPS Use 1 Drop in both eyes once * Patient not taking: Reported on 03/14/2018Problem List As Of Date 03/14/2018 Noted Resolved Allergic rhinitis due to dust mite [J30.89] INVALID FOR* Allergic rhinitis due to cats [J30.81] INVALID FOR* Seasonal allergic rhinitis due to pollen [J30.1]INVALID FOR* Other instructions from your clinician: You are allergic to Cats Dust mites trees (November, December and January) grasses (January and February) weeds (April, May and June) ragweed (April, May and June) From the beginning of January through the end of February, Use otc fluticasone nasal spray 2 sprays to each nostril once a day in the morning (generic flonase) Take otc fexofenadine (cinda) 180 mg in the morning Take montelukast (singulair) one tablet at bedtime Use pataday 1-2 drops to each eye once a day Use cromolyn 1-2 drops to each eye 4 to 6 times a day as needed.Visit Notes:>> Heather Parisi RN cierra Mar 14, 2018 9:21 AM Status: SignedPatient c/o itchy/watery eyes, runny nose, sneezing 2 weeks prior and 2weeks after every year. Sometimes has scratchy throat.Levocetirizine, zyrtec-makes her tired, cinda, claritin, flonase- didnot seem to help. Has used otc eye drops for allergies that helped.Prescriptions ordered this encounter Disp Refills Start End OLOPATADINE 0.2 % EYE DROPS 1 Lm* 03/14/2018 Class: Med Update Route: BOTH EYES Sig: Use 1-2 Drops in both eyes once daily as needed. CROMOLYN 4 % EYE DROPS 1 Lm* 11 03/14/2018 Class: Med Update Si-2 drops to each eye 4 to 6 times a day as needed. MONTELUKAST 10 MG TABLET 30 t* 03/14/2018 Class: Med Update Route: ORAL Sig: Take 1 tablet by mouth daily at bedtime.Medications Discontinued During This Encounter moxifloxacin (VIGAMOX) 0.5 % ophthal* 1 Lm* 0 02/27/2016 03/14/2018 Route: BOTH EYES Sig: Use 1 Drop in both eyes three times daily. Patient not taking: Reported on 03/14/2018 Disc: Reason for discontinue is not on file.Disposition: Return in about 11 months (around 02/11/2019).Follow-up and Disposition History RecordedEncounter Number: [id number] Status:Closed by JOMAR CHAVEZ MD on 03/15/18 [facility] PROGRESSon 03-14-2018 PROGRESS HNO ID: [id number] thor: Louisa Newman RNService: (none)Author Type: (none)Type: Progress NotesFiled: 03/15/2018 3:52 PMNote Text:This is a consultation requested by Edwin Chamorro CNP for an allergy andimmunology evaluation. My final recommendations will be communicated backto the requesting physician by way of shared medical record or letter torequesting physician via US mail.Maggie Salazar is a 47 year old female who has symptoms of itchy eyes,watery eyes, nasal congestion, sneezing, postnasal drip. Associatedsymptoms include cough . These symptoms are seasonal with symptomsoccuring in January and February only. Symptoms are worse when outdoors. Noother identified triggers for her symptoms. The patient has beensuffering from these symptoms 4 year(s). The patient has triedLoratadine, Fexofenadine, Zyrtec, Flonase, Xyzal With fair relief ofsymptoms. She has been treated with Kenalog injections previously withrelief.. Immunotherapy has never been tried.Patient has a history of penicillin allergy. She had a reaction topenicillin in childhood. She does not know details about the reaction.Denies subsequent use of penicillin antibiotics.REVIEW OF SYSTEMS:SINUSITIS: The patient does not suffer from frequent sinopulmonaryinfections.ASTHMA: The patient has no history of asthma.ECZEMA: The patient has no history of eczema.URTICARIA:The patient does not have a history of urticaria and/orangioedema.GERD: The patient does not have a history of GERD.INSECT STING: The patient does not have a history of systemic reaction toinsect sting.FOOD ALLERGY:The patient denies history of food allergy.LATEX: The patient does not have a history of adverse reaction to latex.All other review of systems negative except for those listed above.PAST MEDICAL HISTORYDiagnosis Date- HypertensionMEDICATIONS:IBUPROF EN (ADVIL ORAL) Take by mouth.Levocetirizine 5 mg tablet Take 1 tablet by mouth daily at bedtime.fluticasone (FLONASE) 50 mcg/actuation nasal spray Use 2 Sprays in eachnostril once daily. Rinse mouth after use.Olopatadine (PATADAY) 0.2 % drop Use 1 Drop in both eyes once daily.ALLERGIES: Allergies As of Date: 03/14/2018Allergen Noted ReactionPENICILLINS 12/08/2013 UnknownFully Assessed 03/14/2018Past surgical history:Back surgery for bulging disk approx 2016FAMILY HISTORY:Allergic rhinitis:no.Asthma: no.Eczema: no.Cystic fibrosis: no.Immunodeficiency: no.SOCIAL HISTORY:Marital status: MarriedChildren: 2Occupation: Teacher- special ed preschoolSmoking: life-long non-smokerENVIRONMENTAL HISTORY: Lives in a houseAge of home: over 100 yearsHeating: gasWoodburning fireplace in the home: noAir conditioning: Window air conditioningBasement: Dry basement-runs dehumidifierFlooring: Qsyh-qq-rbnb carpetingDust mite controls: Dust mite controls are already in place on mattress.Pets in the home: There are no pets in the homeOutdoor animals: There are no outdoor animalsTobacco smoke: No exposure in the home.Physical Exam:GENERAL APPEARANCE:Well appearing, alert, in no acute distress,well-hydrated, well nourished.HEENT: NCAT.EYES: conjunctiva and sclera normal.EARS: External ears normal. Canals clear. TM's normal.NOSE/SINUS:pallor and mild edema of the nasal mucosa with scant clearsecretions bilaterallyTHROAT: no erythemaNECK:neck supple, no adenopathyHEART:RRR with normal S1 and S2 ,no murmurs, no gallops, no rubsLUNGS: clear to auscultation bilaterally, no wheezes, rales or rhonchiABDOMEN:soft, nontender, nondistended, without organomegaly or palpablemassesEXTREMITIES:Extre mities normal, No deformities, No skin discoloration andNo edemaSKIN: Skin color, texture, turgor normal. No rashes or lesions.ALLERGY SKIN TESTS:Positive to cats, dust mites, trees, grasses, weeds,ragweed on prick testing. Negative to penicillin and Pre-Pen on bothprick and intradermal tests.ASSESSMENT/PLAN:1.) Allergic RhinoconjunctivitisAggressive environmental controlsExposure to cats should be minimized. There are no cats in the home.Allergen proof encasings should be placed on her pillows.Environmental controls for the pollens were also discussed.The following medication regimen was recommended for the patient:From the beginning of January through the end of February,Use otc fluticasone nasal spray 2 sprays to each nostril once a day in themorning (generic flonase)Take otc fexofenadine (cinda) 180 mg in the morningTake montelukast (singulair) one tablet at bedtimeUse pataday 1-2 drops to each eye once a dayUse cromolyn 1-2 drops to each eye 4 to 6 times a day as needed.(Patient instructed to call the office in early 2018 so that prescriptionsfor Singulair, Pataday and cromolyn may be forwarded to her preferredpharmacy.)Subcutaneous allergy immunotherapy and sublingual immunotherapy (Grastekor Oralair) are treatment options that may be considered. These optionswere discussed briefly with the patient at today's visit.2.) History of penicillin allergy: Penicillin skin tests were negative.Patient is at low risk for a severe, immediate, IgE?mediated reaction topenicillin and other penicillin-type antibiotics. Penicillin skin testsare unreliable for predicting delayed reactions.3.) Hypertension: Patient instructed to follow-up with PCP4.)Discussed medication dosage, usage, side effects, and goals oftreatment in detail.5.) Follow-up in Jan, 2019 - patient will return sooner should newsymptoms or problems arise.Jomar Chavez MDINHALANT 40 PERCUTANEOUS AND INTRADERMAL TESTING/Mean Wheal AND Flare Diameter (mm)Patient has been identified by name and date of : Yes . Skin testapplied by : Louisa Newman RNInterpreted By: Jomar Chavez M.D.* Clinical significant reactions are regarded as a wheal diameter greaterthan or equal to 3 mm with a flare diameter greater or equal to 6mm.ALLERGENSTime applied:Time read:1. Negative Control: 50%Glycerin/50%Cocas P: W = 0 mm F = 0 mm2. Cat Hair 10,000 BAU/ml P: W = 6 mm F = 25 mm3. Dog Epithelial 1:20 P: W = 0 mm F = 0 mm4. Cockroach Mix 1:20 P: W = 0 mm F = 0 mm5. Mite Df 10,000 AU/ml P: W = 4 mm F = 20 mm6. Mite Dp 10,000AU/ml P: W = 0 mm F = 0 mm7. Alternaria Alternata 1:10 P: W = 0 mm F = 0 mm8. Aspergillus Fumigatus 1:20 P: W = 0 mm F = 0 mm9. Cladosporium sphearospermum 1:20 P: W = 0 mm F = 0 mm10. Epicoccum Nigrum 1:10 P: W = 0 mm F = 0 mm11. Fusarium Solani 1:40 P: W = 0 mm F = 0 mm12. Bipolaris Sorokiniana 1:20 P: W = 0 mm F = 0 mm13. Penicillium Mix 1:20 P: W = 0 mm F = 0 mm14. Jim, White 1:20 P: W = 0 mm F = 0 mm15. Beech, Austrian 1:20 P: W = 0 mm F = 0 mm16. Birch Mix 1:20 P: W = 0 mm F = 0 mm17. Maple Mix 1:20 P: W = 2 mm F = 4 mm18. Dixie ,Eastern 1:20 P: W = 0 mm F = 0 mm19. Elm, Austrian 1:20 P: W = 0 mm F = 0 mm20. [place], Shagbark 1:20 P: W = 0 mm F = 5 mm21. [place] Tree, Red 1:20 P: W = 0 mm F = 0 mm22. [place], Black 1:20 P: W = 0 mm F = 0 mm23. [place], Austrian/Eastern 1:20 P: W = 0 mm F = 0 mm24. [place] Pollen, Black 1:20 P: W = 4 mm F = 25 mm25. [place], Black 1:20 P: W = 0 mm F = 6 mm26. [place] Grass 10,000 BAU/ml P : W = 6 mm F = 34 mm27. [place], Blue/Marce 100,000 BAU/ml P: W = 5 mm F = 15 mm28. Fescue, [place] 100,000 BAU/ml P: W = 6 mm F = 25 mm29. [place]au Grass 1:20 P: W = 12 mm F = 30 mm30. Orchard Grass 100,000 BAU/ml P: W = 6 mm F = 30 mm31. Perennial [place], 100,000 BAU/ml P: W = 9 mm F = 30 mm32. Marc 100,000 BAU/ml P: W = 9 mm F = 32 mm33. Cocklebur 1:20 P: W = 0 mm F = 0 mm34. [employer], sheep 1:20 P: W = 0 mm F = 4 mm35. Plantain, Albanian 1:20 P: W = 2 mm F = 10 mm36. Lambs Quarters 1:20 P: W = 0 mm F = 0 mm37. [place] Elder, Burweed 1:20 P: W = 6 mm F = 20 mm38. Pigweed, Rough 1:20 P: W = 0 mm F = 0 mm39. Ragweed, Mix 1:20 P: W = 2 mm F = 18 mm40. HISTAMINE, positive control(Histamine base 6mg/ml) P: W = 8 mm F = 25mmANTIBIOTIC PERCUTANEOUS AND INTRADERMAL SKIN TESTING/Mean Wheal AND Flare Diameter (mm)Patient has been identified by name and date of : Yes . Skin testapplied by : Louisa Newman RNInterpreted By: Jomar Chavez M.D.* Clinical significant reactions are regarded as a wheal diameter greaterthan or equal to 3 mm with a flare diameter greater or equal to 6mm.Time Prick test applied: Time Intradermal test applied:Time Prick test read: Time Intradermal test read:ALLERGENS1. CONTROL Normal Saline P: W = 0 mm F = 0 mmID:W = 0 mm F = 0 mm2. PENICILLIN GK 10,000 UNITS/ML P: W = 0 mm F = 0 mmID: W = 0 mm F = 0 mm3. PREPEN -(benzylpenicilloyl polylysine) full strength P: W = 0 mm F =0mmID: W = 0 mm F = 0 mm4. HISTAMINE- positive control (Histamine base 6mg/ml)for Prick and 0.1mg/ml for intradermal P: W = 8 mm F = 25 mmID:W = 8 mm F = 35 mmPatient was instructed on allergy (prick and intradermal) testing. TopicalPramasone cream applied to testing site per Dr. Chavez's instruction. [facility] CNOVon 01-27-2018 [facility] MAGGIE RAM ([id number]) 1970 FDate Time Provider Department01/27/18 12:45 PM NITISH CHAMORRO ([facility]) [facility] During your visit today, we recorded the following information about you: Temperature Pulse Respiration Blood pressure 98.3 degrees 68/minute 16/minute 140/80 Weight 67 kgNitish Chamorro ([facility]) 01/27/2018 1:15 PM SignedSubjectiveHPIHPI Maggie Salazar is a 47 year old female who presents today for CC ofseasonal allergies, itchy eyes, runny nose, sneezing. This started 5 days ago. Has tried nothing. Symptoms are worsened by nothing. Risk factors hx ofseasonal allergies. Patient requesting steroid injection..Patient presents with:Allergies: x 5 days,wants a kenalog shotNo past medical history on file.No past surgical history on file.ALLERGIES PenicillinsMEDICATIONSIBUPROFEN (ADVIL ORAL) Take by mouth.fluticasone (FLONASE) 50 mcg/actuation nasal spray Use 2 Sprays in each nostrilonce daily.moxifloxacin (VIGAMOX) 0.5 % ophthalmic solution Use 1 Drop in both eyes threetimes daily.Olopatadine (PATADAY) 0.2 % drop Use 1 Drop in both eyes once daily.No family history on file.Social HistorySubstance Use Topics- Smoking status: Never Smoker- Smokeless tobacco: Never Used- Alcohol use Not on fileReview of SystemsConstitutional: Negative for chills, fever and weight loss.HENT: Positive for congestion. Negative for ear pain, nosebleeds and sorethroat.Eyes: Negative for blurred vision, double vision, photophobia and pain.Respiratory: Negative for cough, shortness of breath and wheezing.Musculoskeletal: Negative for neck pain.ObjectiveBlood pressure 140/80, pulse 68, temperature 36.8 ?C (98.3 ?F), temperaturesource Left Tympanic, resp. rate 16, weight 67 kg (147 lb 12.8 oz).Physical ExamConstitutional: She is well-developed, well-nourished, and in no distress. Nodistress.HENT:Head: Normocephalic and atraumatic.Eyes: Conjunctivae and EOM are normal. Pupils are equal, round, and reactive tolight. Right eye exhibits no discharge. Left eye exhibits no discharge.Neck: Normal range of motion. No tracheal deviation present. No thyromegalypresent.Cardiovascul ar: Normal rate, regular rhythm and normal heart sounds.Pulmonary/Chest: Effort normal and breath sounds normal.Lymphadenopathy: She has no cervical adenopathy.Skin: Skin is warm and dry. She is not diaphoretic. ASSESSMENT/PLAN:1. Environmental allergies - ICD9: V15.09, ICD10: Z91.09Will refer to allergistInformed that steroid injection not first line for seasonal allergies- LEVOCETIRIZINE 5 MG TABLET- FLUTICASONE 50 MCG/ACTUATION NASAL SPRAY,SUSPENSION- CONSULT TO ALLERGY/IMMUNOLOGYPrescription instructions reviewed with patient as applicable. Patient advisedif symptoms do not improve or if symptoms worsen sooner, to contact the officefor further evaluation by their primary care physician. Potential red flagsymptoms discussed with the patient. Reviewed appropriate action plan to takeif red flag symptoms occur. Patient agreeable to treatment plan.Nitish Chamorro APRN.Nitish Beaver ([facility]) 01/27/2018 1:12 PM SignedSEASONAL ALLERGY (HAY FEVER):You have the symptoms of allergies. This affects about 10% of the population.The symptoms include: stuffiness, runny nose, sneezing, and itchy red eyes.Allergies occurs when the body overreacts to foreign substances such as plantpollens, molds, dust, and animal danders. Treatment includes: - Avoid contact with the allergen. Reduce your exposure to animals, keep your room dust-free, and stay indoors as much aspossible during the pollen season. Shower and wash your hair aftercontact. - Antihistamine drugs help reduce symptoms. For best results take them on a regular basis. Do not drive or operate heavymachinery while taking antihistamines. - Cortisone and cromolyn nose spray and eye drops can give long-term relief if taken 2-4 times daily during the allergyseason. - Oral decongestants and ideg-axk-bwlkosd eye drops may also bring relief. Please do not use decongestant nose sprays oreye drops for more than three days at a time because they causetolerance.Desensitization shots can be very helpful in severe cases of hay fever; askyour doctor about this. Hay fever can be associated with asthma and sinusdisease. Please see your doctor right away or return here if you haveshortness of breath, wheezing, a persistent cough, a thick nasal discharge,headache, or fever.Referring Provider: SELF [[id number]]Allergies As of Date: 01/27/2018 Noted Allergy ReactionPENICILLINS 12/08/2013 16 - UnknownDate Reviewed: 01/27/2018Reviewed by: Nitish Chamorro ([facility]) - Fully AssessedReason for Visit: Allergies [4] Cmt: x 5 days,wants a kenalog shotReason For Visit History RecordedPrimary Visit Diagnosis:Environmental allergies [Z91.09]Order(s):Levocetirizine 5 mg tabletTake 1 tablet by mouth daily at bedtime.Disp: 30 tabletRfl: 0 fluticasone (FLONASE) 50 mcg/actuation nasal sprayUse 2 Sprays in each nostril once daily. Rinse mouth after use.Disp: 1 BottleRfl: 1 CONSULT TO ALLERGY/IMMUNOLOGY [9001] Order #: [id number]: 1Prescriptions as of 01/27/2018 Sig: ADVIL ORAL Take by mouth. LEVOCETIRIZINE 5 MG TABLET Take 1 tablet by mouth daily * FLUTICASONE 50 MCG/ACTUATION * Use 2 Sprays in each nostril * MOXIFLOXACIN 0.5 % EYE DROPS Use 1 Drop in both eyes three* OLOPATADINE 0.2 % EYE DROPS Use 1 Drop in both eyes once *Problem List As Of Date: 01/27/2018(None) Other instructions from your clinician: SEASONAL ALLERGY (HAY FEVER): You have the symptoms of allergies. This affects about 10% of the population. The symptoms include: stuffiness, runny nose, sneezing, and itchy red eyes. Allergies occurs when the body overreacts to foreign substances such as plant pollens, molds, dust, and animal danders. Treatment includes: - Avoid contact with the allergen. Reduce your exposure to animals, keep your room dust-free, and stay indoors as much as possible during the pollen season. Shower and wash your hair after contact. - Antihistamine drugs help reduce symptoms. For best results take them on a regular basis. Do not drive or operate heavy machinery while taking antihistamines. - Cortisone and cromolyn nose spray and eye drops can give long-term relief if taken 2-4 times daily during the allergy season. - Oral decongestants and hvtr-dkc-kcebjii eye drops may also bring relief. Please do not use decongestant nose sprays or eye drops for more than three days at a time because they cause tolerance. Desensitization shots can be very helpful in severe cases of hay fever; ask your doctor about this. Hay fever can be associated with asthma and sinus disease. Please see your doctor right away or return here if you have shortness of breath, wheezing, a persistent cough, a thick nasal discharge, headache, or fever.Prescriptions ordered this encounter Disp Refills Start End LEVOCETIRIZINE 5 MG TABLET 30 t* 0 01/27/2018 Route: ORAL Sig: Take 1 tablet by mouth daily at bedtime. FLUTICASONE 50 MCG/ACTUATION NASAL S* 1 Lm* 1 01/27/2018 Route: EACH NOSTRIL Sig: Use 2 Sprays in each nostril once daily. Rinse mouth after use.Medications Discontinued During This Encounter fluticasone (FLONASE) 50 mcg/actuati* 16 g 4 03/01/2016 01/27/2018 Route: EACH NOSTRIL Sig: Use 2 Sprays in each nostril once daily. Disc: Discontinued by another Health Care ProviderEncounter Number: [id number] Status:Closed by NITISH CHAMORRO CNP on 01/27/18 [facility] PROGRESSon 01-27-2018 PROGRESS HNO ID: [id number] thor: Nitish Chamorro ([facility])Service: (none)Author Type: Nurse PractitionerType: Progress NotesFiled: 01/27/2018 1:15 PMNote Text:SubjectiveHPIHPI Maggie Salazar is a 47 year old female who presents today for CC ofseasonal allergies, itchy eyes, runny nose, sneezing. This started 5 daysago. Has tried nothing. Symptoms are worsened by nothing. Risk factorshx of seasonal allergies. Patient requesting steroid injection..Patient presents with:Allergies: x 5 days,wants a kenalog shotNo past medical history on file.No past surgical history on file.ALLERGIES PenicillinsMEDICATIONSIBUPROFEN (ADVIL ORAL) Take by mouth.fluticasone (FLONASE) 50 mcg/actuation nasal spray Use 2 Sprays in eachnostril once daily.moxifloxacin (VIGAMOX) 0.5 % ophthalmic solution Use 1 Drop in both eyesthree times daily.Olopatadine (PATADAY) 0.2 % drop Use 1 Drop in both eyes once daily.No family history on file.Social HistorySubstance Use Topics- Smoking status: Never Smoker- Smokeless tobacco: Never Used- Alcohol use Not on fileReview of SystemsConstitutional: Negative for chills, fever and weight loss.HENT: Positive for congestion. Negative for ear pain, nosebleeds and sorethroat.Eyes: Negative for blurred vision, double vision, photophobia and pain.Respiratory: Negative for cough, shortness of breath and wheezing.Musculoskeletal: Negative for neck pain.ObjectiveBlood pressure 140/80, pulse 68, temperature 36.8 ?C (98.3 ?F),temperature source Left Tympanic, resp. rate 16, weight 67 kg (147 lb 12.8oz).Physical ExamConstitutional: She is well-developed, well-nourished, and in no distress.No distress.HENT:Head: Normocephalic and atraumatic.Eyes: Conjunctivae and EOM are normal. Pupils are equal, round, andreactive to light. Right eye exhibits no discharge. Left eye exhibits nodischarge.Neck: Normal range of motion. No tracheal deviation present. Nothyromegaly present.Cardiovascular: Normal rate, regular rhythm and normal heart sounds.Pulmonary/Chest: Effort normal and breath sounds normal.Lymphadenopathy: She has no cervical adenopathy.Skin: Skin is warm and dry. She is not diaphoretic. ASSESSMENT/PLAN:1. Environmental allergies - ICD9: V15.09, ICD10: Z91.09Will refer to allergistInformed that steroid injection not first line for seasonal allergies- LEVOCETIRIZINE 5 MG TABLET- FLUTICASONE 50 MCG/ACTUATION NASAL SPRAY,SUSPENSION- CONSULT TO ALLERGY/IMMUNOLOGYPrescription instructions reviewed with patient as applicable. Patientadvised if symptoms do not improve or if symptoms worsen sooner, tocontact the office for further evaluation by their primary care physician. Potential red flag symptoms discussed with the patient. Reviewedappropriate action plan to take if red flag symptoms occur. Patientagreeable to treatment plan.Nitish Chamorro APRN.ELECT[employer]ICAL SYSTEMS DRAFTER Normal [facility] Vital Signs Date Time Vital Sign Value Performing Clinician Sergei flaco 03-19-2022 13:31-0400 Body height 165.1 cm [facility] Work Phone: Encounters Encounter Date Encounter Type Care Provider Facility Start: 12-24-2024 End: 12-24-2024 ambulatory [facility] Facility:[facility] Start: 04-21-2023 End: 04-21-[address] [facility] Work Phone: Start: 04-21-2023 End: 04-21-2023 [facility] [place] Work Phone: Start: 03-07-2023 End: 03-07-[address] [facility] Work Phone: Start: 03-07-2023 End: 03-07-[address] [facility] Start: 04-12-2022 End: 04-12-2022 [facility] Start: 03-14-2018 End: 03-14-2018 [facility] Start: 01-27-2018 End: 01-30-2018 Ambulatory [facility] Payers Date Payer Category Payer Self-pay [id number] 2007 Unknown [id number] [facility] [id number] Unknown [id number] Social History Date Type Detail Facility Start: 03-08-2019 End: 11-07-2022 Tobacco smoking status NHIS Unknown if ever smoked [facility] Start: 1970 Sex Assigned At Female [facility] Evaluation note Note Date & Type Note Facility Evaluation note No assessment information availa diaz [facility] Work Phone: Summary Purpose Family History No Family History Records FoundNo Family History Records Found Advance Directives No Advanced Directives Records Found Advance Directive Response Recorded Date/ Time Living Will No March 08, 2019 5:07pm Power of American Sign Language Teacher No March 08 9 5:07pm Chief Complaint and Reason for Visit Chief Complaint RT LEG PAIN, SWELLIN G, R/O DVT Additional Source Comments INFORMATION SOURCE (unrecogn ized section and content) DATE CREATED AUTHOR 03/16/2018 [facility] DATE CREATED AUTHOR AUTHOR'S ORGANIZ ATION 12/25/2024 [facility] Goals (unrecognized section and content) Goals may be documented in a n alternate sectionGoals may be documented in an alternate sectionGoals may be documented in an alternate sectionGoals may be documented in an alternate section Care Teams (unrecognized sec tion and content) Team Status: Active Member Role Status Dates Dr. Gloria Mackenzie MD Family Provider Active PRINCESS Salas Primary Care Provider Active Team Status: Inactive Member Role Status Dates Dr. Gloria Mackenzie MD Primary Care Provider Active PRINCESS Salas Attending Provider, Referring Prov ider Active Team Status: Active Member Role Status Dates PRINCESS Salas Primary Care Provide r, Attending Provider, Referring Provider Active Team Status: Inactive Member Role Status Dates PRINCESS Salas Primary Care Provide r, Attending Provider, Referring Provider Active Team Status: Active Member Role Status Dates Dr. Gloria Mackenzie MD Family Provider Active Dr. Gloria Mackenzie MD Primary Care Provider Active Team Status: Inactive Member Role Status Dates Dr. Gloria Mackenzie MD Primary Care Provider Active Alanis Bynum PA-C Attending Provider Active FOR RECORDS PERTAINING TO PATIENTS WHO ARE OR HAVE BEEN ENROLLED IN A CHEMICAL DEPENDENCY/SUBSTANCEABUSE PROGRAM, SOME INFORMATION MAY BE OMITTED. This clinical summary was aggregated from multiple sources. Caution should be exercised in using it in the provision of clinical care. This summary normalizes information from multiple sources, and as a consequence, information in this document may materially change the coding, format and clinical context of patient data. In addition, data may be omitted in some cases. CLINICAL DECISIONS SHOULD BE BASED ON THE PRIMARY CLINICAL RECORDS. [facility] provides no warranty or guarantee of the accuracy or completeness of information in this document.
[2025-09-01] MEDS: HYDROcodone Bitartrate/Apap 5/325 Tablet PO (09:06)
[2025-09-01 09:07] VITALS: BP 195/102; PULSE 72; RESP 16; TEMP 36.8; O2SAT 99
--- NOTE | 2025-09-01 09:15 | ED.RN ---
High blood pressure, has not taken med this morning, encouraged to take meds at home.
== END 2025-09-01 09:16 | disposition home or self-care (01) ==
LOC: ED 09:02
PROVIDERS: Emergency Provider Emergency Medicine; PCP Family Medicine; Visit Provider Emergency Medicine
DX: M54.31 Sciatica, right side (principal); I10 Essential (primary) hypertension; Z79.899 Other long term (current) drug therapy
CPT/HCPCS: 99283